=== PATIENT | male | born 1995 | race African-American/Black ===

== ENCOUNTER 2025-07-07 13:03 | Emergency (ER) | payer BC, SELFPAY ==
--- NOTE | ~2025-07-07 | CT_ITS ---
EXAMINATION: CT abdomen pelvis w con DATE: 07/07/2025 16:57 INDICATION: 29-year-old with left-sided abdominal pain, hematemesis. TECHNIQUE: Computed tomography (CT) of the abdomen and pelvis was performed with 100 cc Omnipaque 350 intravenous contrast. Automated exposure control and iterative reconstruction technique were employed. The dose-length product was 1083.21 mGy-cm. COMPARISON: None. FINDINGS: Lung bases do not show acute findings. Evidence of moderate hepatomegaly and significant splenomegaly are noted measuring craniocaudal span of 20 cm and 18 cm respectively. Portal veins and hepatic veins are patent. The gallbladder shows no acute findings. Main portal vein measures diameter of 1.6 cm. Pancreas and kidneys do not show acute findings. No evidence of small bowel obstruction. No focal inflammatory changes in the pelvis. IMPRESSION: 1. Hepatomegaly and splenomegaly as explained above. Borderline enlarged portal vein suggestive of portal venous hypertension. No evidence of ascites. Suggests hepatocellular disease. Please correlate with clinical and lab results. Reviewed, dictated and finalized at location T. N MARKETING SPECIALIST IMPRESSION: 1. Hepatomegaly and splenomegaly as explained above. Borderline enlarged portal vein suggestive of portal venous hypertension. No evidence of ascites. Suggest s hepatocellular disease. Please correlate with clinical and lab results.
[2025-07-07 13:35] VITALS: BP 142/94; PULSE 98; RESP 18; TEMP 36.8; O2SAT 100
--- NOTE | 2025-07-07 15:14 | ED.ABDPAIN ---
HPI - Abdominal Pain General Chief Complaint: Abdominal Pain <CAIT Suresh Last Filed: 07/07/25 15:34> Stated Complaint: abdominal pain, vomiting blood x2 <CAIT Suresh Last Filed: 07/07/25 15:34> Time Seen by Provider: 07/07/25 15:14 <Angelia Orta PA-C - Last Filed: 07/07/25 15:34> Focused HPI: Patient is a 29 y/o male who presents to the ED via EMS with report of N/V, hematemesis. Patient reports having episodes of N/V/D intermittently for the past 4 months. States they have always been very mild. Began feeling unwell this afternoon. Reports having blood in his emesis around 12pm, bright red in color, mixed in with his food. Had another episode of vomiting shortly after, which only consisted with dark red blood/coffee ground material. He then called for 911. Reports slight lightheadedness, intermittent pain in L sided abdomen. Denies hx of GERD, PUD, frequent ETOH use, anticoagulation use. Patient does report hx of sickle cell anemia and is prescribed Ibuprofen. Takes this several times per week. GENERAL: Well-appearing, obese with BMI 34.4, and in no acute distress. HEAD: Normocephalic, atraumatic. CHEST: Clear to auscultation. ?No respiratory distress. HEART: Regular rate and rhythm.? ABD: Mild TTP in L upper/mid abdomen, normoactive BS NEURO: ?Alert and oriented x3. Patient screened in triage and initial orders placed.? ?Additional care and disposition to be based upon?diagnostic testing and treatment. <Angelia Orta PA-C - Last Filed: 07/07/25 15:34> Source: patient <CAIT Suresh Last Filed: 07/07/25 15:34> Mode of arrival: EMS <CAIT Suresh Last Filed: 07/07/25 15:34> Limitations: no limitations <CAIT Suresh Last Filed: 07/07/25 15:34> History of Present Illness HPI narrative: agree with HPI <Patricia Duvall MD - Last Filed: 07/07/25 21:47> Related Data Allergies/Adverse Reactions: Allergies Allergy/AdvReac Type Severity Reaction Status Date / Time No Known Allergies Allergy Verified 07/07/25 13:39 <Angelia Orta PA-C - Last Filed: 07/07/25 15:34> Review of Systems Review of Systems: All systems reviewed & are unremarkable except as noted in HPI and below <Patricia Duvall MD - Last Filed: 07/07/25 21:47> Exam Narrative: EXAMINATION OF ORGAN SYSTEMS/BODY AREAS: Constitutional: Vital signs per nursing GENERAL:No acute distress, non-toxic appearing. HEAD: Normal with no signs of head trauma. EYES: EOMI, conjunctiva normal ENT: Hearing grossly intact LUNGS: Nonlabored breathing. HEART: Regular rate and rhythm ABD: Soft, nontender to palpation EXT: Normal range of motion SKIN: No rashes or lesions. NEURO: Alert. No gross focal sensory or strength deficits. PSYCH: Normal affect <Patricia Duvall MD - Last Filed: 07/07/25 21:47> Course Vital Signs Vital signs: Vital Signs Temperature 98.2 F 07/07/25 13:35 Pulse Rate 98 07/07/25 13:35 Respiratory Rate 18 07/07/25 13:35 Blood Pressure 142/94 H 07/07/25 13:35 Pulse Oximetry 100 07/07/25 13:35 Oxygen Delivery Room Air 07/07/25 13:35 Temperature 98.2 F 07/07/25 13:35 Pulse Rate 98 07/07/25 18:08 Respiratory Rate 20 07/07/25 18:08 Blood Pressure 149/86 H 07/07/25 18:08 Pulse Oximetry 100 07/07/25 18:08 Oxygen Delivery Room Air 07/07/25 13:35 <Angelia Orta PA-C - Last Filed: 07/07/25 15:34> Vital Signs Temperature 98.2 F 07/07/25 13:35 Pulse Rate 98 07/07/25 13:35 Respiratory Rate 18 07/07/25 13:35 Blood Pressure 142/94 H 07/07/25 13:35 Pulse Oximetry 100 07/07/25 13:35 Oxygen Delivery Room Air 07/07/25 13:35 Temperature 98.2 F 07/07/25 13:35 Pulse Rate 98 07/07/25 18:08 Respiratory Rate 20 07/07/25 18:08 Blood Pressure 149/86 H 07/07/25 18:08 Pulse Oximetry 100 07/07/25 18:08 Oxygen Delivery Room Air 07/07/25 13:35 <Patricia Duvall MD - Last Filed: 07/07/25 21:47> MDM MDM Narrative Medical decision making narrative: MSE by WILLIS in triage <Angelia Orta PA-C - Last Filed: 07/07/25 15:34> MSE by WILLIS in triage Patient presents here after he threw up twice with small amount of blood in his vomit. History of sickle cell but otherwise this has never happened to him before. Abdomen soft nontender, nausea improved after the Protonix but after the CT scan contrast he started feeling nauseous again, the Zofran given. In the 5 hours he has been in the ER, he has not had any further episodes of emesis. He feels much better. CT abdomen/pelvis without acute abnormality, he does have hepatomegaly and splenomegaly which I discussed with the patient. He just started seeing GI recently and is agreeable to following up with them, I did start prescriptions for Pepcid, Protonix, Zofran, and he is given strict return precautions. <Patricia Duvall MD - Last Filed: 07/07/25 21:47> Differential Diagnosis Differential Diagnosis: Differential Diagnostic considerations for GI bleeding include PUD, varices, Meckel's diverticulum, Xin-Ray syndrome, <Patricia Duvall MD - Last Filed: 07/07/25 21:47> Lab Data Result diagrams: 07/07/25 16:10 07/07/25 16:10 <Angelia Orta PA-C - Last Filed: 07/07/25 15:34> Labs: Lab Results 07/07/25 Range/Units 16:10 WBC 10.6 H (4.5-10.0) K/mm3 RBC 4.55 L (4.6-6.20) M/mm3 Hgb 11.5 L (14.0-18.0) g/dL Hct 33.8 L (42.0-52.0) % MCV 74.3 L (80-100) fl MCH 25.3 L (26-34) pg MCHC 34.0 (32-36) g/dl RDW 18.0 H (11.5-14.5) % Plt Count 97 L (150-375) k/mm3 MPV 10.3 (7.4-10.4) fl Immature Gran % (Auto) 0.5 (0-0.5) % Neut % (Auto) 73.4 H (45.5-73.1) % Lymph % (Auto) 18.5 (18.3-44.2) % [place] % (Auto) 4.8 (2.6-8.5) % Eos % (Auto) 2.4 (0-4.4) % Baso % (Auto) 0.4 (0.2-1.2) % Lymph # (Auto) 1.96 (0.9-3.2) K/mm3 [place] # (Auto) 0.5 (0.1-0.6) K/mm3 Eos # (Auto) 0.3 (0-0.3) K/mm3 Baso # (Auto) 0.0 (0.0-0.1) K/mm3 Abs Immat Gran (auto) 0.05 H (0.00-0.031) K/mm3 Absolute Neuts (auto) 7.8 H (1.3-6.7) K/mm3 Absolute Nucleated RBC 0.030 H (0.0-0.012) K/mm3 Band Neutrophils % Not Reportable Nucleated RBC % 0.3 H (0.0-0.2) % Platelet Estimate Decreased (Adequate) % Immature Plt Fraction 3.5 (0.9-11.2) % Anisocytosis 1+ Target Cells Occasional Ovalocytes Occasional Schistocytes None seen PT 14.1 (11.1-14.7) Seconds INR 1.1 APTT 25.5 (22.3-36.8) Seconds Sodium 140 (137-145) mmol/L Potassium 4.4 (3.4-5.0) mmol/L Chloride 107 (98-107) mmol/L Carbon Dioxide 27 (22-30) mmol/L Anion Gap 6 (4-12) mmol/L BUN 12 (9-20) mg/dL Creatinine 0.94 (0.7-1.3) mg/dL Estim Creat Clear Calc 144 ml/min Estimated GFR > 60 (59 - ) Glucose 100 (65-110) mg/dL Lactic Acid 1.2 (0.7-2.0) mmol/L Calcium 9.3 (8.4-10.2) mg/dL Total Bilirubin 3.0 H (0.2-1.3) mg/dL AST 126 H (17-59) U/L ALT 138 H (6-50) U/L Alkaline Phosphatase 102 (38-126) U/L Total Protein 7.8 (6.3-8.2) g/dL Albumin 4.5 (3.5-5.1) g/dL Lipase 60 (23-300) U/L <Angelia Orta PA-C - Last Filed: 07/07/25 15:34> Lab Results 07/07/25 Range/Units 16:10 WBC 10.6 H (4.5-10.0) K/mm3 RBC 4.55 L (4.6-6.20) M/mm3 Hgb 11.5 L (14.0-18.0) g/dL Hct 33.8 L (42.0-52.0) % MCV 74.3 L (80-100) fl MCH 25.3 L (26-34) pg MCHC 34.0 (32-36) g/dl RDW 18.0 H (11.5-14.5) % Plt Count 97 L (150-375) k/mm3 MPV 10.3 (7.4-10.4) fl Immature Gran % (Auto) 0.5 (0-0.5) % Neut % (Auto) 73.4 H (45.5-73.1) % Lymph % (Auto) 18.5 (18.3-44.2) % [place] % (Auto) 4.8 (2.6-8.5) % Eos % (Auto) 2.4 (0-4.4) % Baso % (Auto) 0.4 (0.2-1.2) % Lymph # (Auto) 1.96 (0.9-3.2) K/mm3 [place] # (Auto) 0.5 (0.1-0.6) K/mm3 Eos # (Auto) 0.3 (0-0.3) K/mm3 Baso # (Auto) 0.0 (0.0-0.1) K/mm3 Abs Immat Gran (auto) 0.05 H (0.00-0.031) K/mm3 Absolute Neuts (auto) 7.8 H (1.3-6.7) K/mm3 Absolute Nucleated RBC 0.030 H (0.0-0.012) K/mm3 Band Neutrophils % Not Reportable Nucleated RBC % 0.3 H (0.0-0.2) % Platelet Estimate Decreased (Adequate) % Immature Plt Fraction 3.5 (0.9-11.2) % Anisocytosis 1+ Target Cells Occasional Ovalocytes Occasional Schistocytes None seen PT 14.1 (11.1-14.7) Seconds INR 1.1 APTT 25.5 (22.3-36.8) Seconds Sodium 140 (137-145) mmol/L Potassium 4.4 (3.4-5.0) mmol/L Chloride 107 (98-107) mmol/L Carbon Dioxide 27 (22-30) mmol/L Anion Gap 6 (4-12) mmol/L BUN 12 (9-20) mg/dL Creatinine 0.94 (0.7-1.3) mg/dL Estim Creat Clear Calc 144 ml/min Estimated GFR > 60 (59 - ) Glucose 100 (65-110) mg/dL Lactic Acid 1.2 (0.7-2.0) mmol/L Calcium 9.3 (8.4-10.2) mg/dL Total Bilirubin 3.0 H (0.2-1.3) mg/dL AST 126 H (17-59) U/L ALT 138 H (6-50) U/L Alkaline Phosphatase 102 (38-126) U/L Total Protein 7.8 (6.3-8.2) g/dL Albumin 4.5 (3.5-5.1) g/dL Lipase 60 (23-300) U/L <Patricia Duvall MD - Last Filed: 07/07/25 21:47> Imaging Data Radiologist's impression: ITS Impressions Abdomen/Pelvis CT 07/07/25 16:58 IMPRESSION: 1. Hepatomegaly and splenomegaly as explained above. Borderline enlarged portal vein suggestive of portal venous hypertension. No evidence of ascites. Suggests hepatocellular disease. Please correlate with clinical and lab results. <Angelia Orta PA-C - Last Filed: 07/07/25 15:34> ITS Impressions Abdomen/Pelvis CT 07/07/25 16:58 IMPRESSION: 1. Hepatomegaly and splenomegaly as explained above. Borderline enlarged portal vein suggestive of portal venous hypertension. No evidence of ascites. Suggests hepatocellular disease. Please correlate with clinical and lab results. <Patricia uDvall MD - Last Filed: 07/07/25 21:47> Discharge Plan Discharge Clinical Impression: Hematemesis, Hepatomegaly <Angelia Orta PA-C - Last Filed: 07/07/25 15:34> Patient Disposition: Home <Angelia Orta PA-C - Last Filed: 07/07/25 15:34> Condition: Stable <Angelia Orta PA-C - Last Filed: 07/07/25 15:34> Instructions: Hematemesis (ED), Transaminitis (ED) <Angelia Orta PA-C - Last Filed: 07/07/25 15:34> Additional Instructions: You can take the medications as prescribed, and follow up with your GI specialist and student teaching coordinator. If your symptoms return or worsen, please go back to the emergency room. <Angelia Orta PA-C - Last Filed: 07/07/25 15:34> Patient Language: Arabic <Angelia Orta PA-C - Last Filed: 07/07/25 15:34> Prescriptions: New famotidine 20 mg tablet 20 mg PO DAILY Qty: 30 0RF ondansetron 4 mg tablet,disintegrating 4 mg PO Q8H PRN (Reason: nausea and vomiting) Qty: 14 0RF pantoprazole [Protonix] 40 mg tablet,delayed release (DR/EC) 40 mg PO QAM 28 Days Qty: 28 0RF <Angelia Orta PA-C - Last Filed: 07/07/25 15:34> Follow-up/Referrals: PHYSICIAN NOT ON STAFF,NONSTAFF [Primary Care Provider] <CAIT Suresh Last Filed: 07/07/25 15:34>
[2025-07-07 16:21] LABS: Hematocrit 33.8 % (42.0-52.0); Hemoglobin 11.5 g/dL (14.0-18.0); Immature Granulocyte Percent A 0.5 % (0-0.5); Immature Platelet Fraction Pct 3.5 % (0.9-11.2); Lymphocytes Absolute Auto 1.96 K/mm3 (0.9-3.2); Mean Corpuscular HGB Conc 34.0 g/dl (32-36); Mean Corpuscular Hemoglobin 25.3 pg (26-34); Mean Corpuscular Volume 74.3 fl (80-100); Nucleated Red Blood Cells Absolute Auto 0.030 K/mm3 (0.0-0.012); Nucleated Red Blood Cells Perc 0.3 % (0.0-0.2); Platelet Count Result 97 k/mm3 (150-375); Red Blood Count 4.55 M/mm3 (4.6-6.20); White Blood Count 10.6 K/mm3 (4.5-10.0)
[2025-07-07 16:33] LABS: Alanine Aminotransferase 138 U/L (6-50); Albumin Level 4.5 g/dL (3.5-5.1); Alkaline Phosphatase 102 U/L (38-126); Anion Gap 6 mmol/L (4-12); Aspartate Amino Transferase 126 U/L (17-59); Bilirubin,Total 3.0 mg/dL (0.2-1.3); Blood Urea Nitrogen 12 mg/dL (9-20); Calcium 9.3 mg/dL (8.4-10.2); Carbon Dioxide 27 mmol/L (22-30); Chloride 107 mmol/L (98-107); Estimated CRCL calculation 144 ml/min; Estimated Glomerular Filt Rate > 60; Glucose 100 mg/dL (65-110); INR 1.1; Lipase 60 U/L (23-300); Partial Thromboplastin Time 25.5 Seconds (22.3-36.8); Potassium 4.4 mmol/L (3.4-5.0); Prothrombin Time 14.1 Seconds (11.1-14.7); Sodium 140 mmol/L (137-145); Total Protein 7.8 g/dL (6.3-8.2)
[2025-07-07 16:34] LABS: Anisocytosis 1+; Ovalocytes Occasional; Target Cells Occasional
[2025-07-07] MEDS: PANTOPRAZOLE SODIUM IV 40 MG VIAL IV PUSH (16:34)
[2025-07-07 16:35] LABS: Schistocytes None Seen
[2025-07-07] MEDS: SODIUM CHLORIDE 0.9% IV 1,000 ML 999 ML IV CONT (16:35)
[2025-07-07] MEDS: ONDANSETRON INJ 4 MG/2 ML VIAL IV PUSH (17:20)
[2025-07-07 18:08] VITALS: BP 149/86; PULSE 98; RESP 20; O2SAT 100
--- OUTSIDE RECORDS SUMMARY | 2025-07-07 19:07 | XMS_ITS | Clinical Summary ---
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
== END 2025-07-07 19:24 | disposition home or self-care (01) ==
PROVIDERS: Physician Assistant; Emergency Provider Emergency Medicine
DX: K92.0 Hematemesis (principal); R16.2 Hepatomegaly with splenomegaly, not elsewhere classified; D57.1 Sickle-cell disease without crisis
CPT/HCPCS: 36415; 74177; 80053; 83605; 83690; 85025; 85055; 85610; 85730; 96361; 96374; 96375; 99284; J2405; J2470; J7030; Q9967